=== PATIENT | female | born 1970 | race Caucasian/White ===

== ENCOUNTER → 2017-09-01 07:25 | Outpatient (CLI) | payer BC, SELFPAY ==
[2017-09-01 08:50] LABS: Cholesterol 204 mg/dL (200); High Density Lipoprotein 63 mg/dL; Triglycerides 63 mg/dL; Very Low Density Lipoprotein 13 mg/dL (5-40)
== END ==
PROVIDERS: Family Provider Family Medicine; PCP Family Medicine; Visit Provider Nurse Practitioner Adult Health
DX: Z13.220 Encounter for screening for lipoid disorders (principal)
CPT/HCPCS: 36415; 80061

== ENCOUNTER → 2017-09-13 16:48 | Outpatient (CLI) | payer BC, SELFPAY ==
--- NOTE | 2017-09-13 16:52 | HPBI_ITS ---
MAMMOGRAPHY - BILATERAL SCREENING REASON FOR EXAM: Female, 46 years old. Routine annual screening examination. PERTINENT HISTORY: Non-contributory. TECHNIQUE: Digital bilateral breast abel (3D mammographic acquisition) in the CC and MLO projections. 2-D mediolateral oblique (MLO) and craniocaudad (CC) views of both breasts were obtained. CAD: Full Field Digital Mammography with Computer Added Detection was performed. COMPARISON: Comparison is made with prior study dated February 23, 2017. FINDINGS: Breast Composition: The breasts are extremely dense, which lowers the sensitivity of mammography. There are no dominant masses or suspicious calcifications. No other significant abnormalities are identified. There has been no significant change since the prior study. HPBI/SCREENING MAMM (CAD), BILAT IMPRESSION: Stable bilateral screening mammogram. Yearly follow-up mammogram recommended. (A) ASSESSMENT CATEGORY: BIRADS Category 1: Negative. A letter regarding these results will be sent to the patient by the facility within 30 days. Approximately 10% of breast cancers are not detected by mammography. A normal mammogram should not delay biopsy of a clinically suspicious abnormality. [id number] Electronically Signed: Marshall Tamez MD at 9:50 EST Tel [phone], Service support ,
== END ==
PROVIDERS: Family Provider Family Medicine; PCP Family Medicine; Visit Provider Nurse Practitioner Adult Health
DX: Z12.31 Encounter for screening mammogram for malignant neoplasm of breast (principal)
CPT/HCPCS: 77063; 77067

== ENCOUNTER → 2018-10-19 07:50 | Outpatient (CLI) | payer BC, SELFPAY ==
--- NOTE | 2018-10-19 08:36 | BI_ITS ---
MAMMOGRAPHY - BILATERAL SCREENING 3-D SUSY SYNTHESIS REASON FOR EXAM: Female, 47 years old. Bilateral Screening 3-D tomosynthesis PERTINENT HISTORY: No significant family history. TECHNIQUE: 2-D mammograms and 3-D Susy synthesis of the breast (s) were performed. CAD was performed. COMPARISON: September 13, 2017 FINDINGS: The breast composition is heterogeneously dense that can obscure small breast masses. Scattered benign calcifications are seen. No dense spiculated masses or suspicious microcalcifications are identified. No architectural distortion is identified. There is no skin thickening or retraction. There has been no significant change since the prior study. BI/SCREENING MAMM (CAD), BILAT IMPRESSION: No mammographic signs of malignancy. Routine yearly mammograms recommended. ASSESSMENT CATEGORY: BIRADS Category 2: Benign. A letter regarding these results will be sent to the patient by the facility within 30 days. FOLLOW UP RECOMMENDATION: Yearly follow up mammogram recommended. (A) Approximately 10% of breast cancers are not detected by mammography. A normal mammogram should not delay biopsy of a clinically suspicious abnormality. Electronically Signed: Yakov Wang MD at 17:47 EDT , Service support ,
[2018-10-19 09:11] LABS: Anion Gap 4 (5-15); BUN 15 mg/dL (7-18); BUN/Creat Ratio 20.2 RATIO (10-20); Calcium,Total 8.2 mg/dL (8.5-10.1); Chloride 110 mmol/L (98-107); Cholesterol 148 mg/dL (200); Creatinine, Serum 0.74 mg/dL (0.55-1.02); EST Glomerular Filtration Rate 89 mL/min (>60); Est Glom Filt Rate - Afr Amer 107 mL/min (>60); Glucose 88 mg/dL (74-106); High Density Lipoprotein 65 mg/dL; Potassium 3.8 mmol/L (3.5-5.1); Sodium Level 141 mmol/L (136-145); Triglycerides 35 mg/dL; Very Low Density Lipoprotein 7 mg/dL (5-40)
== END ==
PROVIDERS: Family Provider Family Medicine; PCP Family Medicine; Referring Provider Nurse Practitioner Adult Health; Visit Provider Nurse Practitioner Adult Health
DX: Z12.31 Encounter for screening mammogram for malignant neoplasm of breast (principal); Z00.00 Encounter for general adult medical examination without abnormal findings
CPT/HCPCS: 36415; 77063; 77067; 80048; 80061

== ENCOUNTER → 2019-09-22 | Outpatient (CLI) | payer BC, SELFPAY ==
[2019-09-24 15:59] LABS: HPV Reflexed? NOT INDICATED
== END | disposition home or self-care (01) ==
PROVIDERS: PCP Family Medicine; Referring Provider Nurse Practitioner Adult Health; Visit Provider Nurse Practitioner Adult Health
DX: Z01.419 Encounter for gynecological examination (general) (routine) without abnormal findings (principal)
CPT/HCPCS: 88175; G0145

== ENCOUNTER → 2021-07-09 06:59 | Outpatient (CLI) | payer BC, SELFPAY ==
[2021-07-09 08:30] LABS: Anion Gap 6 (5-15); BUN 20 mg/dL (7-18); BUN/Creat Ratio 24.6 RATIO (10-20); Calcium,Total 8.4 mg/dL (8.5-10.1); Chloride 110 mmol/L (98-107); Creatinine, Serum 0.81 mg/dL (0.55-1.02); EST Glomerular Filtration Rate 79 mL/min (>60); Est Glom Filt Rate - Afr Amer 95 mL/min (>60); Glucose 95 mg/dL (74-106); Potassium 4.1 mmol/L (3.5-5.1); Sodium Level 140 mmol/L (136-145); Thyroid Stim Hormone (TSH) 1.67 uIU/mL (0.358-3.74)
[2021-07-11 08:55] LABS: Vitamin D,25 Hydroxy 44.4 ng/mL
== END ==
PROVIDERS: PCP Family Medicine; Referring Provider Family Medicine; Visit Provider Family Medicine
DX: Z13.1 Encounter for screening for diabetes mellitus (principal); Z83.3 Family history of diabetes mellitus; Z13.29 Encounter for screening for other suspected endocrine disorder; Z13.21 Encounter for screening for nutritional disorder
CPT/HCPCS: 36415; 80048; 82306; 83036; 84443

== ENCOUNTER → 2021-07-12 14:59 | Outpatient (CLI) | payer BC, SELFPAY ==
--- NOTE | 2021-07-12 15:01 | BI_ITS ---
MAMMOGRAPHY - BILATERAL SCREENING REASON FOR EXAM: Female, 50 years old. Routine annual screening examination. PERTINENT HISTORY: Non-contributory. TECHNIQUE: Digital bilateral breast susy (3D mammographic acquisition) in the CC and MLO projections. 2-D mediolateral oblique (MLO) and craniocaudad (CC) views of both breasts were obtained. CAD: Full Field Digital Mammography with Computer Added Detection was performed. COMPARISON: Comparison is made with prior study dated 10/19/2018 and 09/13/2017. FINDINGS: Breast Composition: The breasts are extremely dense, which lowers the sensitivity of mammography. There are no dominant masses or suspicious calcifications. No other significant abnormalities are identified. There has been no significant change since the prior study. BI/SCRN MAMM (CAD)W/SUSY BILAT IMPRESSION: Stable bilateral screening mammogram. Yearly follow-up mammogram recommended. (A) ASSESSMENT CATEGORY: BIRADS Category 1: Negative. A letter regarding these results will be sent to the patient by the facility within 30 days. Approximately 10% of breast cancers are not detected by mammography. A normal mammogram should not delay biopsy of a clinically suspicious abnormality. [id number] Electronically Signed: Marshall Tamez MD at 15:51 EST , Service support ,
== END ==
PROVIDERS: PCP Family Medicine; Referring Provider Family Medicine; Visit Provider Family Medicine
DX: Z12.31 Encounter for screening mammogram for malignant neoplasm of breast (principal)
CPT/HCPCS: 77063; 77067

== ENCOUNTER → 2022-08-02 | Outpatient (CLI) | payer BC, SELFPAY ==
--- NOTE | 2022-08-02 15:49 | BI_ITS ---
MAMMOGRAPHY - BILATERAL SCREENING REASON FOR EXAM: Female, 51 years old. Routine annual screening examination. PERTINENT HISTORY: Non-contributory. TECHNIQUE: Digital bilateral breast susy (3D mammographic acquisition) in the CC and MLO projections. 2-D mediolateral oblique (MLO) and craniocaudad (CC) views of both breasts were obtained. CAD: Full Field Digital Mammography with Computer Added Detection was performed. COMPARISON: Comparison is made with prior study dated 07/12/2021 and 10/19/2018. FINDINGS: Breast Composition: The breasts are extremely dense, which lowers the sensitivity of mammography. There are no dominant masses or suspicious calcifications. Stable small benign-appearing bilateral axillary lymph nodes. No other significant abnormalities are identified. There has been no significant change since the prior study. BI/SCRN MAMM (CAD)W/SUSY BILAT IMPRESSION: Stable bilateral screening mammogram. Yearly follow-up mammogram recommended. (A) ASSESSMENT CATEGORY: BIRADS Category 2: Benign. A letter regarding these results will be sent to the patient by the facility within 30 days. Approximately 10% of breast cancers are not detected by mammography. A normal mammogram should not delay biopsy of a clinically suspicious abnormality. [id number] Electronically Signed: Marshall Tamez MD at 8:58 EST ,
== END | disposition home or self-care (01) ==
LOC: OPBI 15:46
PROVIDERS: PCP Family Medicine; Referring Provider Family Medicine; Visit Provider Family Medicine
DX: Z12.31 Encounter for screening mammogram for malignant neoplasm of breast (principal)
CPT/HCPCS: 77063; 77067

== ENCOUNTER → 2022-10-23 | Outpatient (CLI) | payer BC, SELFPAY ==
[2022-10-31 11:09] LABS: HPV APTIMA, High Risk Negative (Negative)
== END | disposition home or self-care (01) ==
PROVIDERS: PCP Family Medicine; Visit Provider Registered Nurse
DX: Z12.4 Encounter for screening for malignant neoplasm of cervix (principal)
CPT/HCPCS: 87624; 88175; G0145

== ENCOUNTER → 2022-10-30 | Outpatient (CLI) | payer BC, SELFPAY ==
--- NOTE | 2022-10-30 | POL_PTH ---
PATIENT: ROCCO GOMEZ LOC: [facility] U#:[id number] AGE/SX: 51/F ROOM: RE10/30/[address]: Dr. Leigh Ann Hernández MD : 1970 BED: DIS: 10/30/2022 SPEC #: [id number] RECD: 10/30/22 11:21 STATUS: MELIDA REChad #: [id number] SARAH: 10/30/22 00:[address]: Leigh Ann Hernández DEPT: SURGICAL PATHOLOGY RECD BY: Chata Licona ENTERED: 10/31/22 07:31 SP TYPE: Polyp OTHR DR: Dr. Zoran Yates MD Tissues: POLYP Procedures: Surgery Specimen Level IV HEADER OPERATION: Polypectomy PRE-OP DIAGNOSIS: Cervical polyp TISSUE SUBMITTED: Cervix MICROSCOPIC DIAGNOSIS Cervical polyp, biopsy: Benign endocervical polyp, inflamed. AM:annette 10/31/2022 MICROSCOPIC DESCRIPTION Slides are reviewed. GROSS DESCRIPTION Received is one container labeled with the patient's name and not further designated. The specimen consists of a fragment of das-pink polyp measuring 1.0 x 0.7 x 0.5 cm. This polyp is bisected. Also present in the container are multiple fragments of mucoid tissue. The entire specimen is submitted in one cassette. / SJ:rg 10/30/2022 TC:1 CPT: 07454
[2022-10-30 10:26] LABS: Absolute Lymphocyte Count 0.89 X10^3/uL (0.83-4.51); Absolute Neutrophil Count 2.6 X10^3/uL (2.0-7.7); Basophil# 0.02 X10^3/uL; Basophil% 0.5 % (0-1); Eosinophil# 0.01 X10^3/uL; Eosinophils% 0.3 % (0-5); Hematocrit 37.7 % (37-47); Hemoglobin 12.4 g/dL (12.0-15.0); Lymphocyte # 0.89 X10^3/ul (0.83-4.51); Lymphocyte % 23.5 % (19-41); Mean Corp Hgb Conc 32.9 g/dL (32-36); Mean Corpuscular Hgb 31.4 pg (27.0-32.0); Mean Corpuscular Volume 95.4 fL (81-99); Mean Platelet Vol. 9.5 fl (6.2-12.0); Monocyte# 0.29 X10^3/uL; Monocyte% 7.7 % (0-10); NRBC Flagged by Analyzer 0 % (0-5); Neutrophil # 2.57 X10^3/uL (2.7-7.7); Neutrophil % 67.7 % (47-70); Platelet Count 145 K/mm3 (150-450); RBC Distribution Width SD 45.3 fl (35.1-43.9); Red Blood Count 3.95 M/mm3 (4.2-5.4); White Blood Count 3.8 K/mm3 (4.4-11.0)
[2022-10-30 10:33] LABS: Vitamin D,25 Hydroxy 41.4 ng/mL
[2022-10-30 10:55] LABS: Anion Gap 6 (5-15); BUN 19 mg/dL (7-18); BUN/Creat Ratio 23.1 RATIO (10-20); Chloride 105 mmol/L (98-107); Cholesterol 207 mg/dL (200); Creatinine, Serum 0.82 mg/dL (0.55-1.02); EST Glomerular Filtration Rate 77 mL/min (>60); Est Glom Filt Rate - Afr Amer 93 mL/min (>60); Glucose 89 mg/dL (74-106); High Density Lipoprotein 67 mg/dL; Potassium 3.6 mmol/L (3.5-5.1); Sodium Level 136 mmol/L (136-145); Triglycerides 56 mg/dL; Very Low Density Lipoprotein 11 mg/dL (5-40)
== END | disposition home or self-care (01) ==
PROVIDERS: Registered Nurse; PCP Family Medicine; Referring Provider Obstetrics & Gynecology; Visit Provider Obstetrics & Gynecology
DX: N84.1 Polyp of cervix uteri (principal); Z13.1 Encounter for screening for diabetes mellitus; N93.9 Abnormal uterine and vaginal bleeding, unspecified; Z13.220 Encounter for screening for lipoid disorders; Z13.21 Encounter for screening for nutritional disorder
CPT/HCPCS: 36415; 80048; 80061; 82306; 85025; 88305

== ENCOUNTER → 2022-11-15 | Outpatient (CLI) | payer BC, SELFPAY ==
--- NOTE | 2022-11-15 13:31 | US_ITS ---
INDICATION: AUB EXAMINATION: Ultrasound US Pelvis Non OB Complete With Transvaginal Imaging TECHNIQUE: Transabdominal and transvaginal sonographic images of the pelvis. Grayscale and color flow Doppler evaluation of the adnexa. COMPARISON: None. FINDINGS: UTERUS: Anteverted. 9.9 x 5.9 x 6.6 cm. 2 myometrial fibroids measuring 1.9 cm and 1.3 cm. Endometrium is unremarkable. Endometrial stripe thickness of 5 mm. 2.0 cm nabothian cyst. RIGHT OVARY: 1.8 cm simple cyst consistent with a dominant ovarian follicle with no follow-up recommended. LEFT OVARY: Unremarkable. FREE FLUID: No significant free fluid. US/Pelvic (Non ) IMPRESSION: 1. Normal appearance of the endometrium. 2. 2 myometrial fibroids measuring 1.9 cm and 1.3 cm. 3. 2.0 cm nabothian cyst. Electronically Signed: Fabio aCsper DO at 2:40 EDT ,
--- NOTE | 2022-11-15 13:31 | US_ITS ---
INDICATION: AUB EXAMINATION: Ultrasound US Pelvis Non OB Complete With Transvaginal Imaging TECHNIQUE: Transabdominal and transvaginal sonographic images of the pelvis. Grayscale and color flow Doppler evaluation of the adnexa. COMPARISON: None. FINDINGS: UTERUS: Anteverted. 9.9 x 5.9 x 6.6 cm. 2 myometrial fibroids measuring 1.9 cm and 1.3 cm. Endometrium is unremarkable. Endometrial stripe thickness of 5 mm. 2.0 cm nabothian cyst. RIGHT OVARY: 1.8 cm simple cyst consistent with a dominant ovarian follicle with no follow-up recommended. LEFT OVARY: Unremarkable. FREE FLUID: No significant free fluid. US/Transvaginal Non- IMPRESSION: 1. Normal appearance of the endometrium. 2. 2 myometrial fibroids measuring 1.9 cm and 1.3 cm. 3. 2.0 cm nabothian cyst. Electronically Signed: Fabio Casepr DO at 2:40 EDT ,
== END | disposition home or self-care (01) ==
PROVIDERS: PCP Family Medicine; Referring Provider Registered Nurse; Visit Provider Registered Nurse
DX: N93.9 Abnormal uterine and vaginal bleeding, unspecified (principal)
CPT/HCPCS: 76830; 76856

== ENCOUNTER → 2022-12-11 | Outpatient (CLI) | payer BC, SELFPAY ==
--- NOTE | 2022-12-11 | EMB_PTH ---
PATIENT: ROCCO GOMEZ LOC: [facility]#:[id number] AGE/SX: 51/F ROOM: RE12/11/[address]: Uma Mandujano CNM : 1970 BED: DIS: 12/11/2022 SPEC #: [id number] RECD: 12/11/22 14:33 STATUS: MELIDA PAUL #: [id number] SARAH: 12/11/22 00:[address]: Iraida Mauro NP DEPT: SURGICAL PATHOLOGY RECD BY: Mulu Su ENTERED: 12/12/22 07:13 SP TYPE: ENDOM BX/C MICHAEL DR: Dr. Zoran Yates, MD Uma Mandujano CNM Tissues: Endometrium, NOS Procedures: Surgery Specimen Level IV HEADER OPERATION: Endometrial biopsy PRE-OP DIAGNOSIS: Abnormal uterine bleeding TISSUE SUBMITTED: Endometrial tissue MICROSCOPIC DIAGNOSIS Endometrial biopsy: Proliferative endometrium. Fragments of benign endocervical mucosa. SJ:annette 12/13/2022 MICROSCOPIC DESCRIPTION Slides are reviewed. GROSS DESCRIPTION Received is one container labeled with the patient's name and not further designated. The specimen consists of multiple irregular fragments of light das soft tissue that in aggregate measure 2.0 x 1.0 x <0.1 cm. The specimen is totally submitted in one cassette. / AM:annette 12/12/2022 TC:4 CPT: 31316
[2022-12-11 14:48] LABS: Absolute Lymphocyte Count 1.29 X10^3/uL (0.83-4.51); Absolute Neutrophil Count 3.3 X10^3/uL (2.0-7.7); Basophil# 0.02 X10^3/uL; Basophil% 0.4 % (0-1); Eosinophil# 0.03 X10^3/uL; Eosinophils% 0.6 % (0-5); Hematocrit 39.5 % (37-47); Hemoglobin 12.9 g/dL (12.0-15.0); Lymphocyte # 1.29 X10^3/ul (0.83-4.51); Lymphocyte % 25.5 % (19-41); Mean Corp Hgb Conc 32.7 g/dL (32-36); Mean Corpuscular Hgb 32.3 pg (27.0-32.0); Mean Platelet Vol. 8.9 fl (6.2-12.0); Monocyte# 0.38 X10^3/uL; Monocyte% 7.5 % (0-10); NRBC Flagged by Analyzer 0 % (0-5); Neutrophil # 3.33 X10^3/uL (2.7-7.7); Neutrophil % 65.8 % (47-70); Platelet Count 156 K/mm3 (150-450); RBC Distribution Width CV 13.4 % (11.6-14.6); RBC Distribution Width SD 48.7 fl (35.1-43.9); Red Blood Count 3.99 M/mm3 (4.2-5.4); White Blood Count 5.1 K/mm3 (4.4-11.0)
== END | disposition home or self-care (01) ==
PROVIDERS: PCP Family Medicine; Referring Provider Registered Nurse; Visit Provider Registered Nurse
DX: N93.9 Abnormal uterine and vaginal bleeding, unspecified (principal)
CPT/HCPCS: 36415; 85025; 88305

== ENCOUNTER 2023-03-13 05:09 | Day surgery (SDC) | payer BC, SELFPAY ==
--- NOTE | 2023-03-01 12:42 | EKG12_ITS ---
Test Reason : PREOP Blood Pressure : / mmHG Vent. Rate : 064 BPM Atrial Rate : 064 BPM P-R Int : 174 ms QRS Dur : 078 ms QT Int : 388 ms P-R-T Axes : 012 -08 037 degrees QTc Int : 400 ms Normal sinus rhythm with sinus arrhythmia Low voltage QRS Borderline ECG Confirmed by JAYDEN VALERO, MARGARET ([id number]), rewrite editor KARAN CRUZ ([id number]) on 03/02/2023 1:32:28 PM Referred By: Leigh Ann Hernández Confirmed By:MACO CARPENTER MD
[2023-03-01 13:45] LABS: Hematocrit 38.5 % (37-47); Mean Corp Hgb Conc 33.8 g/dL (32-36); Mean Corpuscular Hgb 32.5 pg (27.0-32.0); Mean Corpuscular Volume 96.3 fL (81-99); Mean Platelet Vol. 9.2 fl (6.2-12.0); Platelet Count 149 K/mm3 (150-450); RBC Distribution Width CV 12.8 % (11.6-14.6); RBC Distribution Width SD 45.1 fl (35.1-43.9); White Blood Count 5.4 K/mm3 (4.4-11.0)
[2023-03-01 14:18] LABS: Magnesium 2.1 mg/dL (1.6-2.6)
[2023-03-01 14:19] LABS: ALB/GLOB Ratio 1.1 RATIO (0.9-2.4); AST(SGOT) 11 U/L (15-37); Alanine Aminotransfer ALT/SGPT 16 U/L (13-56); Albumin, Serum 3.9 g/dL (3.2-5.0); Alkaline Phosphatase 51 U/L (45-117); Anion Gap 6 (5-15); BUN 20 mg/dL (7-18); BUN/Creat Ratio 23.6 RATIO (10-20); Calcium,Total 8.7 mg/dL (8.5-10.1); Chloride 108 mmol/L (98-107); Creatinine, Serum 0.85 mg/dL (0.55-1.02); EST Glomerular Filtration Rate 75 mL/min (>60); Est Glom Filt Rate - Afr Amer 90 mL/min (>60); Globulin 3.4 g/dL (2.2-4.2); Glucose 94 mg/dL (74-106); Potassium 3.9 mmol/L (3.5-5.1); Protein, Total 7.3 g/dL (6.4-8.2); Sodium Level 142 mmol/L (136-145)
[2023-03-13] VITALS (11 sets, daily range): BP systolic 112–129; BP diastolic 68–91; PULSE 62–79; RESP 14–18; TEMP 36–36.3; O2SAT 91–100; BMI 30.4
--- NOTE | 2023-03-13 00:56 | PCM.HP.BLA ---
History and Physical Date of Admission: 03/13/23 MR#: [id number] Acct: [id number] Name: ROCCO GOMEZ Rep #: [id number] : 1970 Provider: Dr. Leigh Ann Hernández MD Age/Sex: 52/F [place] [facility] [place]: Signed Intake Vital Signs 01/01/2309:17 02/13/2314:58 Height 5 ft 5.5 in 5 ft 5.5 in Weight: 199 lb 4 oz BMI 32.6 BP 124/75 H Intake Visit Reasons: TVHBS possible LAVH Assessment Analyst Required: No Is patient in pain?: No Allergies Penicillins Allergy (Mild, Verified 02/13/23 15:11) Hives Medications cholecalciferol (vitamin D3) 50 mcg (2,000 unit) capsule 50 mcg PO DAILY 10/23/22 [History Confirmed 02/13/23] mecobalamin (vitamin B12) 1,000 mcg chewable tablet 1,000 mcg PO DAILY 10/23/22 [History Confirmed 02/13/23] multivitamin 1 tab PO DAILY 10/23/22 [History Confirmed 02/13/23] Is last menstrual period known: No Post menopausal: Yes [facility] : No : [facility] History (Updated 01/01/23 @ 09:[address] Leigh Ann Hernández MD) Abnormal Pap smear of cervix Endometriosis Surgical History (Updated 01/01/23 @ 09:[address] Leigh Ann Hernández MD) History of mandibular surgery S/P dilation and curettage S/P laparoscopy S/P LEEP Status post colposcopy Family History Mother Diabetes HypertensionFather Atrial fibrillation CVA (cerebral vascular accident) Dementia Social History Smoking Status: Never smoker alcohol intake: never substance use type: does not use caffeine: Yes what type of physical activity do you participate in: none seatbelt use: always do you feel safe at home: Yes additional social history: HPI TVHBS possible LAVH Details: ROCCO GOMEZ is a 52 year old who presents for preop for hysterectomy, has history of AUB and nl EMB, mild endometriosis in past, small 1 cm fibroids x 2, planning TVHBS possible lavh. Female Reproductive History Menopausal Symptoms: Yes hot flashes, No night sweats, No difficulty concentrating and No change in libido History 2 Elective abortions Hx Para 1 Spontaneous abortions Hx # Term Pregnancies Ectopic pregnancies Hx # Pregnancies Multiple births # of living children Past Pregnancies Del. Date Name GA/Weeks Outcome Route Bth Weight [facility] Unknown Aliyah COOPER Const Constitutional: Denies fatigue, night sweats, weight gain or weight loss ENT ENT: Reports system reviewed and no additional complaints, except as documented Cardio Card: Denies chest pain Resp Resp: Denies cough or dyspnea GI GI: Reports as per HPI; Denies abdominal pain, constipation, nausea or vomiting : Reports hot flashes; Denies nipple discharge Musc Musc: Denies arthralgias, back pain or muscle weakness Skin Skin/Breast: Denies alopecia, change in hair, dry skin, breast mass, breast pain, breast skin changes or nipple discharge Neuro Neuro: Reports system reviewed and no additional complaints, except as documented Psych Psych: Denies change in libido or difficulty concentrating Endo Endo: Denies cold intolerance, excessive sweating, heat intolerance or polydipsia Amos/Lymph Hematologic/Lymphatic: Denies easy bleeding, Denies easy bruising and Denies lymphadenopathy Exam Const General: cooperative, healthy appearing, comfortable and no acute distress Orientation: alert [facility] Head: normal to inspection and normocephalic Ears: hearing grossly normal bilaterally and external ears normal Nose: external nose normal and nares normal Face and sinus: normal facial exam Neck Neck: normal visual inspection and no lymphadenopathy Thyroid: thyroid normal Chest Chest palpation & inspection: normal inspection of the chest Resp Effort & Inspection: normal respiratory effort Auscultation: clear to auscultation bilaterally Cardio Rate: regular rate Rhythm: regular rhythm Heart Sounds: S1 normal and S2 normal GI Inspection: normal to inspection and non-distended Palpation: soft and no hepatosplenomegaly Musc Other: gross motor intact no deficits, full bilateral strength Skin General: no rashes or lesions noted Neuro General: patient alert, patient awake, moves all extremities and no focal motor deficits Motor: muscle tone normal throughout Extrem General: normal to inspection and no pedal edema Psych Appearance: grossly normal Mental Status: mental status grossly normal Affect: normal affect Speech and Movement: speech and movement normal Coding Level of Care Code Attention Keshia Diagnoses Abnormal uterine bleeding N93.9 Endometriosis N80.9 Fibroids D21.9 Assessment and Plan Assessment and Plan (1) Abnormal uterine bleeding: Status: Acute Comment: pelvic us lining 5mm, 2 small fibroids. EMB WNL. Wants TVH:consult (2) Endometriosis: Status: Acute Comment: plan TVHBS possible laparoscopy (3) Fibroids: Status: Acute Comment: plan TVHBS. Plan After discussing the patient's diagnosis and treatment plan options, patient wishes to proceed with surgical management. I have discussed with the patient the risks, benefits, and alternatives of the procedure which include but are not limited to risks of anesthesia, bleeding, infection, possible damage to bowel, bladder, or surrounding vasculature which could lead to additional surgery to evaluate any complications. Patient agrees to procedure and wishes to proceed. ACOG/uptodate references given for additional information regarding procedure. 02/13/23 1536 <Electronically signed by Leigh Ann Hernández MD> Date Leigh Ann Hernández MD
[2023-03-13 05:58] LABS: Internal QC Validated? YES +Cl - CLEAR BKGD; Pregnancy, Urine Negative Negative
[2023-03-13] MEDS: Lactated Ringers 1,000 ML 40 ML IV ×4 (06:07→14:14)
[2023-03-13] MEDS: Magnesium 1 GM over 15 mins IV (06:08)
[2023-03-13] MEDS: Scopolamine 1mg/72hr Patch 1 PATCH TD (06:09)
[2023-03-13] MEDS: Enoxaparin 40 MG/0.4 ML Syringe SC (06:10)
[2023-03-13] MEDS: Celecoxib 200 MG Capsule 400 MG PO (06:12)
[2023-03-13] MEDS: Acetaminophen 500 MG Tablet 1000 MG PO (06:13)
[2023-03-13] MEDS: Gabapentin 600 MG Tablet PO (06:13)
[2023-03-13] MEDS: Phenazopyridine 95 MG Tablet 190 MG PO (06:14)
[2023-03-13] MEDS: dexAMETHasone 4 MG/ML Vial 8 MG IV (06:14)
[2023-03-13 06:47] LABS: Bedside Glucose 84 mg/dL (74-106)
--- NOTE | 2023-03-13 07:28 | OP.PCM_ITS ---
Problems Associated Problem List Diagnoses (1) Fibroids: (2) Abnormal uterine bleeding: (3) Endometriosis: Report of Operation Date of Procedure: 03/13/23 Pre-Operative Diagnosis: see A/P Post-Operative Diagnosis: same Surgery/Procedure Performed:: LAVHBS Description of Surgical Findings:: minimal uterine descent and poor vaginal access, thick paracervical and parametrial tissue Surgeon: Leigh Ann Hernández antique finisher: None (grady student) antique finisher: Kiera Andrews Type of Anesthesia: General Specimen's removed: uterus, tubes Drains: sherman Fluids Replaced: crystalloid Description of Procedure: Patient received preoperative antibiotics and SCDs were on preoperatively. Patient was taken back to the operating room and placed in the dorsal lithotomy position. General anesthesia was induced and patient was prepped and draped in normal sterile fashion. minimal descent with limited vaginal access was noted even with anesthesia therefore the decision was made to proceed with the counseled possibility of LAVH. Uterine manipulator was placed inside the uterus and Sherman catheter (size 12 british needed) placed in the bladder. The umbilicus was grasped with towel clamps and an intraumbilical incision was made after injecting with quarter percent Marcaine and a Veress needle entered into the abdomen confirmed to be intra-abdominal with a low opening pressure. Abdomen was insufflated with CO2 gas and the Veress needle removed and the 5 mm trocar was placed under direct visualization without complication. Right and left lower quadrants were transilluminated and injected with quarter percent Marcaine and 5 mm ports placed under direct visualization. Pelvis was well visualized see operative findings for additional information. Bilateral fallopian tubes were identified and transected with the LigaSure device across the mesosalpinx to the level of the utero-ovarian ligament which was also transected with the LigaSure device. The broad ligament was opened up by transecting the round ligament bilaterally and skeletonizing the uterine vessels bilaterally and creating a bladder flap using the LigaSure device. The uterine arteries were transected bilaterally with good visualization of the bladder and the ureters were seen to be inferior lateral to the operative area. Attention was then paid to the vaginal portion of the procedure and the cervix was grasped with Ramiro clamps and circumferentially injected with dilute vasopressin. A circumferential incision was made and the vaginal mucosa was mobilized off posteriorly and the cul-de-sac entered into sharply and a longneck speculum placed. The anterior cul-de-sac was then identified and entered into sharply. The uterosacral ligaments were clamped cut and suture ligated with 0 Monocryl bi laterally followed by the cardinal ligaments which were clamped cut and suture ligated bilaterally with 0 Monocryl. The uterus serially descended and was removed without difficulty. Pelvic sidewall pedicles were checked and after additional sutures, noted to have excellent hemostasis. The vaginal mucosa was reapproximated incorporating the anterior and posterior peritoneum. This was reapproximated using 0 Vicryl [id number] sutures. Excellent hemostasis was noted. The pelvis and cul-de-sac were well visualized and no significant active bleeding noted but some raw areas were seen on the peritoneum cuff and therefore floseal was applied. Pressure was taken down and the areas visualized and noted of excellent hemostasis. All ports were removed under direct visualization without complication and the abdomen was desufflated of air. The instruments were removed from the abdomen and the vaginal sweep was negative. Port sites on the abdomen were closed with 4-0 Monocryl interrupted sutures and Steri's and windows were applied. She was awoken and taken recovery in stable condition. Grafts/Implants Used: none Complications none Admit VTE Documentation VTE Present on Admission: No VTE Mechan Device Prophylaxis: SCD's VTE Pharm Prophylaxis ordered?: Yes Procedures Urinary/Genital 52xxx-59xxx: 90506 LAVH+BS/O <250gr Uterus Multi Select Codes Urinary/Genital Urinary/Genital CPT Codes: 47132 LAVH+BS/O <250gr Uterus
--- NOTE | 2023-03-13 07:29 | DCINST_ITS ---
Discharge Instructions Diet Discharge Diet: No restrictions Activity Discharge Activity: Return to Normal Activity, May Not Drive (while taking narcotic pain medications.) and May Shower May resume sexual activity in: 6-8 weeks Weight Bearing Status: Full weight bearing Dressing / Incision Call your doctor if your incision/area has: Continuous Slow Oozing, Sudden Increased Bleeding, Increased Pain/ Swelling, Increased Redness and Foul Smelling Discharge Call your doctor if you observe: Fever of 101 or Higher, Inability to urinate, Inability to have a bowel movement and Using more than 1 pad per hour Suture Line Care: Avoid Pulling/Pushing and Avoid Pinching/Bending Remove Dressing in: 1 week (if present) Cleanse incision/area with: Soap & Water and Keep Dressing Clean & Dry Follow Up Care Please Follow Up With: Leigh Ann Hernández MD When: Call to make an appointment with your doctor for a postop visit in 2 and 6 weeks. Test Results: Test results from this visit will be discussed in further detail at your follow- up appointment, if applicable. Discharge Plan Admission Attending Provider: Leigh Ann Hernández Primary Care Provider: Leonidas Yates Consulting Providers: Wayne Tyler Discharge Orders/Prescriptions Prescriptions: New oxycodone-acetaminophen [Percocet] 5-325 mg tablet 1 tab PO Q6H PRN (Reason: pain) 7 Days Qty: 20 0RF naproxen [naproxen] 500 mg tablet 500 mg PO BID PRN PRN (Reason: Pain) Qty: 30 1RF No Action multivitamin Tablet 1 tab PO DAILY cholecalciferol (vitamin D3) 50 mcg (2,000 unit) capsule 50 mcg PO DAILY Complex B-100 Tablet Extended Release 1 tab PO DAILY ferrous gluconate 225 mg (27 mg iron) tablet 225 mg PO DAILY Referrals / Follow Up: Leonidas Yates MD [Primary Care Provider] - Disposition Disposition (needs filled in before D/C Order can be placed): Home, Self Care
--- NOTE | 2023-03-13 07:30 | HYST_PTH ---
PATIENT: ROCCO GOMEZ LOC: [facility] [place] U#:[id number] AGE/SX: 52/F ROOM: RE03/13/[address]: Dr. Leigh Ann Hernández MD : 1970 BED: DIS: 03/13/2023 SPEC #: [id number] RECD: 03/13/23 11:43 STATUS: MELIDA REChad #: [id number] SARAH: 03/13/23 07:[address]: Leigh Ann Hernández DEPT: SURGICAL PATHOLOGY RECD BY: Abby Da Silva ENTERED: 03/13/23 12:17 SP TYPE: HYSTERECT OTHR DR: MD Dr. Zoran Lugo MD Tissues: Uterus, NOS Procedures: Surgery Specimen Level V HEADER OPERATION: JOEY DE LOS [place]ANTOS, bilateral salpingectomy PRE-OP DIAGNOSIS: Abnormal uterine bleeding, endometriosis, fibroids TISSUE SUBMITTED: Uterus, cervix, bilateral fallopian tubes MICROSCOPIC DIAGNOSIS Uterus, hysterectomy: Cervix - mild chronic inflammation and nabothian cysts. Endometrium - proliferative endometrium. Myometrium - leiomyomas and adenomyosis. Right fallopian tube - benign paratubal cysts. Left fallopian tube - benign epithelial inclusion cysts. AM:annette 03/14/2023 MICROSCOPIC DESCRIPTION Slides are reviewed. GROSS DESCRIPTION Received in fixative is one container labeled with the patient's name and designated uterus. The specimen consists of a uterus with attached cervix and attached right and left fallopian tubes. The uterus with cervix measures 9.5 x 7.0 x 5.5 cm and weighs 142 gm. The ectocervix is grossly unremarkable. The endocervical canal measures 4.0 cm in length and is grossly unremarkable. The triangular endometrial cavity measures 4.0 x 3.5 cm. The velvety, light das endometrium measures up to 0.2 cm in thickness. The myometrium measures 2.5 cm in average thickness and is distorted by multiple spherical, rubbery nodules ranging in size from 0.6 to 2.8 cm in greatest dimension. Serial sections of the nodules reveal whorled appearances without areas of cyst formation or necrosis. The right fallopian tube measures 5.0 cm in length and 1.0 cm in average diameter. The soft tissue adjacent to the fimbrial end contains a smooth, glistening cyst containing clear fluid. The cyst measures 1.0 cm in greatest dimension. The left fallopian tube measures 6.0 cm in length and 1.0 cm in average diameter and is grossly unremarkable. Condenser Cleaner sections are submitted in ten cassettes as follows: 1 - anterior cervix, 2 - posterior cervix, 3 & 4 - anterior myometrial wall, 5 & 6 - posterior myometrial wall, 7 - largest myometrial mass, 8 - second and third largest myometrial masses, 9 - right fallopian tube and paratubal cyst, 10 - left fallopian tube. / AM:annette 03/13/2023 TC:1 CPT: 13348
[2023-03-13] MEDS: Clindamycin 900 MG/50 ML BAG 75 MG IV (07:35)
[2023-03-13] MEDS: Vasopressin 20 UNITS/ML Vial (08:20)
[2023-03-13] MEDS: Bupivacaine 0.25% 30 ML Vial (09:40)
[2023-03-13] MEDS: Ketorolac 30 MG/ML Syringe IV (10:21)
[2023-03-13 12:47] LABS: Absolute Lymphocyte Count 0.42 X10^3/uL (0.83-4.51); Basophil# 0.01 X10^3/uL; Basophil% 0.2 % (0-1); Hemoglobin 12.3 g/dL (12.0-15.0); Lymphocyte # 0.42 X10^3/ul (0.83-4.51); Lymphocyte % 6.4 % (19-41); Mean Corp Hgb Conc 33.2 g/dL (32-36); Mean Corpuscular Hgb 32.9 pg (27.0-32.0); Mean Corpuscular Volume 98.9 fL (81-99); Monocyte# 0.08 X10^3/uL; Monocyte% 1.2 % (0-10); NRBC Flagged by Analyzer 0 % (0-5); Neutrophil # 5.97 X10^3/uL (2.7-7.7); Neutrophil % 91.6 % (47-70); POSITIVE DIFFERENTIAL YES; Platelet Count 150 K/mm3 (150-450); RBC Distribution Width SD 46.4 fl (35.1-43.9); Red Blood Count 3.74 M/mm3 (4.2-5.4); White Blood Count 6.5 K/mm3 (4.4-11.0)
[2023-03-13 12:49] LABS: Differential Indicated SCAN CRITERIA MET
== END 2023-03-13 15:25 | disposition home or self-care (01) ==
LOC: SDC 05:11 → AC 05:17
PROVIDERS: Anesthesiology; PCP Family Medicine; Referring Provider Obstetrics & Gynecology; Visit Provider Obstetrics & Gynecology
PROC: (CPT 58260; principal; 2023-03-13 07:10)
DX: N93.9 Abnormal uterine and vaginal bleeding, unspecified (principal); N95.1 Menopausal and female climacteric states; N83.8 Other noninflammatory disorders of ovary, fallopian tube and broad ligament; N88.8 Other specified noninflammatory disorders of cervix uteri
CPT/HCPCS: 58552; 00840; 36415; 80053; 81025; 82962; 83735; 85025; 85027; 86850; 86900; 86901; 88307; 93005; J7120; J2405; J3475

== ENCOUNTER → 2023-11-15 | Outpatient (CLI) | payer BC, SELFPAY ==
--- NOTE | 2023-11-15 15:53 | BI_ITS ---
MAMMOGRAPHY - BILATERAL SCREENING REASON FOR EXAM: Female, 52 years old. Routine annual screening examination. PERTINENT HISTORY: Non-contributory. TECHNIQUE: Digital bilateral breast susy (3D mammographic acquisition) in the CC and MLO projections. 2-D mediolateral oblique (MLO) and craniocaudad (CC) views of both breasts were obtained. CAD: Full Field Digital Mammography with Computer Added Detection was performed. COMPARISON: Comparison is made with prior study dated January 20, 2023 and July 12, 2021. FINDINGS: Breast Composition: The breasts are extremely dense, which lowers the sensitivity of mammography. There are no dominant masses or suspicious calcifications. Stable small benign-appearing bilateral axillary lymph nodes. No other significant abnormalities are identified. There has been no significant change since the prior study. BI/SCRN MAMM (CAD)W/SUSY BILAT IMPRESSION: Stable bilateral screening mammogram. Yearly follow-up mammogram recommended. (A) ASSESSMENT CATEGORY: BIRADS Category 2: Benign. A letter regarding these results will be sent to the patient by the facility within 30 days. Approximately 10% of breast cancers are not detected by mammography. A normal mammogram should not delay biopsy of a clinically suspicious abnormality. [id number] Electronically Signed: Marshall Tamez MD at 8:28 EDT ,
== END | disposition home or self-care (01) ==
LOC: OPBI 15:53
PROVIDERS: PCP Family Medicine; Referring Provider Registered Nurse; Visit Provider Registered Nurse
DX: Z12.31 Encounter for screening mammogram for malignant neoplasm of breast (principal)
CPT/HCPCS: 77063; 77067

== ENCOUNTER → 2024-11-17 | Outpatient (CLI) | payer BC, SELFPAY ==
--- NOTE | 2024-11-17 14:08 | BI_ITS ---
EXAM: SCRN MAMM (CAD)W/SUSY BILAT DATE: 11/17/2024 CLINICAL HISTORY: F, Age 53 y/o , SCREENING No family history. BREAST CANCER RISK ASSESSMENT: Not assessed. TECHNIQUE: Bilateral screening digital breast tomosynthesis with 2D and 3D images. Computer aided detection. COMPARISON: Prior exam(s) dated November 15, 2023.. FINDINGS: TISSUE DENSITY: The breast tissue is extremely dense which lowers the sensitivity of mammography. Bilateral Breast Mammographic Findings: No significant masses, calcifications or other abnormalities are identified. No suspicious masses, areas of developing architectural distortion, or suspicious calcifications. There has been no significant interval change. BI/SCRN MAMM (CAD)W/SUSY BILAT IMPRESSION: OVERALL FINAL ASSESSMENT: BIRADS 1 NEGATIVE RECOMMENDATION: Routine annual follow-up in 1 Year A letter with findings and recommendations will be mailed to the patient. Reading Location: [place] [id number]
== END | disposition home or self-care (01) ==
LOC: OPBI 14:07
PROVIDERS: PCP Family Medicine; Referring Provider Nurse Practitioner Women's Health; Visit Provider Nurse Practitioner Women's Health
DX: Z12.31 Encounter for screening mammogram for malignant neoplasm of breast (principal)
CPT/HCPCS: 77063; 77067